=== PATIENT | female | born 2000 | race Two or more races ===

== ENCOUNTER → 2019-12-27 | Outpatient (CLI) | payer BC ==
[2019-12-27 10:21] LABS: Basophils # (auto) 0 10 ^3/uL (0-0.2); Basophils % (auto) 0.2 % (0.0-2.0); Eosinophils # (auto) 0 10 ^3/uL (0-0.8); Eosinophils % (auto) 0.7 % (0.0-7.0); Hematocrit 40.3 % (36.0-46.0); Hemoglobin 13.6 g/dL (12.2-16.2); Lymphocytes # (auto) 1.5 10 ^3/uL (0.4-5.4); Lymphocytes % (auto) 29.3 % (10.0-50.0); Mean Corpuscular Hemoglobin 28.8 pg (28.0-32.0); Mean Corpuscular Hgb Conc. 33.8 g/dL (32.0-36.0); Mean Corpuscular Volume 85.1 fL (80.0-100.0); Monocytes # (auto) 0.4 10 ^3/uL (0-1.3); Monocytes % (auto) 8.8 % (0.0-12.0); Nucleated Red Blood Cells % 0.5 %; Platelet Count (auto) 210 10^3/uL (140-450); Red Blood Cells 4.74 10^6/uL (4.0-5.20); Red Cell Distribution Width 14.2 % (11.8-14.3)
[2019-12-27 10:49] LABS: Follicle Stimulating Hormone 4.28 IU/L (SEE BELOW); Leuteinizing Hormone 4.6 IU/L
== END | disposition home or self-care (01) ==
LOC: LAB 09:36
PROVIDERS: ATTEND Obstetrics & Gynecology
DX: N94.4 Primary dysmenorrhea (principal)
CPT/HCPCS: 36415; 82670; 83001; 83002; 84403; 84443; 85025